=== PATIENT | male | born 1950 | race Caucasian/White ===

== ENCOUNTER 2017-12-06 02:13 | Inpatient (IN) | payer MEDICARE, OTHER ==
[2017-12-06 02:47] LABS: ADD MAN DIFF? NO
[2017-12-06 02:48] LABS: BASO # 0.1 x10^3/uL (0.0-0.2); BASO % 0 % (0-3); EOS # 0.2 x10^3/uL (0.0-0.7); EOS % 1 % (0-3); HEMATOCRIT 40.3 % (39.0-53.0); HEMOGLOBIN 13.1 g/dL (13.0-17.5); LYMPH % 20 % (24-48); MEAN CORPUSCULAR HEMOGLOBIN 26 pg (25-35); MEAN CORPUSCULAR HGB CONC 32 g/dL (31-37); MEAN CORPUSCULAR VOLUME 80 fL (79-100); MONO # 0.8 x10^3/uL (0.0-1.1); MONO % 5 % (0-9); NEUT # 11.1 x10^3uL (1.8-7.7); NEUT % 74 % (31-73); PLATELET COUNT 211 x10^3/uL (140-400); RED BLOOD COUNT 5.05 x10^6/uL (4.30-5.70); RED CELL DISTRIBUTION WIDTH 16.8 % (11.5-14.5); WHITE BLOOD COUNT 15.1 x10^3/uL (4.0-11.0)
[2017-12-06 03:06] LABS: ALBUMIN 3.1 g/dL (3.4-5.0); ALBUMIN/GLOBULIN RATIO 0.8 (1.0-1.7); ALK PHOS 257 U/L (46-116); ALT (SGPT) 138 U/L (16-63); ANION GAP 9 (6-14); AST (SGOT) 52 U/L (15-37); BLOOD UREA NITROGEN 70 mg/dL (8-26); BUN/CREATININE RATIO 29 (6-20); CALCIUM 8.6 mg/dL (8.5-10.1); CARBON DIOXIDE 35 mmol/L (21-32); CHLORIDE 84 mmol/L (98-107); CREATININE 2.4 mg/dL (0.7-1.3); GFR 27.1; SODIUM 128 mmol/L (136-145); TOTAL BILIRUBIN 0.4 mg/dL (0.2-1.0); TOTAL PROTEIN 7.1 g/dL (6.4-8.2)
[2017-12-06 03:07] LABS: TROPONINI 0.024 ng/mL (0.000-0.055)
[2017-12-06 03:13] LABS: CKMB MASS 2.8 ng/mL (0.0-3.6); CREATINE KINASE 59 U/L (39-308)
[2017-12-06 03:13] LABS: NT-PRO BNP 437 pg/mL (0-124)
[2017-12-06 03:15] LABS: GLUCOSE 541 mg/dL (70-99)
[2017-12-06 03:16] LABS: POTASSIUM 2.1 mmol/L (3.5-5.1)
[2017-12-06] MEDS: IPRATRPIUM/ALBUTEROL 0.5/2.5MG 3 ML NEBU. NEB ×2 (03:20→06:00)
[2017-12-06 03:22] LABS: BASE EXCESS COOX 9 mmol/L (-3-3); CARBON MONOXIDE 1.9 % (0.0-1.9); HCO3 COOX 36 mmol/L (21-28); METHEMOGLOBIN 0.4 % (0.0-1.9); OXYHEMOGLOBIN 94.1 %; PCO2 COOX 58 mmHg (35-46); PH COOX 7.41 (7.35-7.45); PO2 COOX 96 mmHg (65-108); SAT O2 COOX 96 % (92-99); TOTAL HEMOGLOBIN 13.5 g/dL
[2017-12-06 03:26] LABS: PARTIAL THROMBOPLASTIN TIME 26 SEC (24-38)
[2017-12-06 03:40] LABS: LACTIC ACID 3.1 mmol/L (0.4-2.0)
[2017-12-06] MEDS: IV NORMAL SALINE 500ML BAG 500 ML IV (04:00)
[2017-12-06] MEDS: IV NORMAL SALINE 1000ML BAG 1,000 ML IV ×2 (04:00→09:17)
[2017-12-06 04:13] LABS: BILIRUBIN,URINE NEGATIVE (NEG); CLARITY,URINE CLEAR; COLOR,URINE YELLOW; GLUCOSE,URINE >=1000 mg/dL (NEG); NITRITE,URINE NEGATIVE (NEG); PH,URINE 6.5; PROTEIN,URINE NEGATIVE (NEG-TRACE); UROBILINOGEN,URINE 0.2 mg/dL (0.2 mg/dL)
[2017-12-06 04:19] LABS: BACTERIA,URINE 0 /HPF (0-FEW); HYALINE CASTS, URINE OCCASIONAL /HPF; RBC,URINE 0 /HPF (0-2); SQUAMOUS EPITHELIAL CELL,UR OCC /LPF; WBC,URINE 0 /HPF (0-4)
[2017-12-06] MEDS: POTASSIUM CHLORIDE 40 MEQ in IV DEXTROSE 5% 1,000 ML IV (04:19)
[2017-12-06] MEDS ORDERED: ONDANSETRON PF 4 MG/2 ML VIAL. IV ×2 (04:30→08:45)
[2017-12-06 05:46] LABS: POC GLUCOSE 353 mg/dL (70-99)
[2017-12-06 07:26] LABS: LACTIC ACID 1.6 mmol/L (0.4-2.0)
[2017-12-06 07:28] LABS: TROPONINI 0.029 ng/mL (0.000-0.055)
[2017-12-06] MEDS ORDERED: DOCUSATE SODIUM 100 MG CAPSULE. PO ×2 (08:30→08:45)
[2017-12-06] MEDS ORDERED: ACETAMINOPHEN 325 MG TABLET. PO ×2 (08:30→08:45)
[2017-12-06] MEDS ORDERED: DEXTROSE 50% 25 GM / 50ML DISP.SYRIN. IV (08:30)
[2017-12-06] MEDS ORDERED: CYCLOBENZAPRINE 10 MG TABLET. PO (08:30)
[2017-12-06] MEDS ORDERED: NITROGLYCERIN SUBLINGUAL 0.4 MG BOTTLE OF 25. SL (08:30)
[2017-12-06] MEDS ORDERED: tiZANidine 4 MG TABLET. PO (08:30)
[2017-12-06] MEDS ORDERED: MORPHINE SULFATE 4 MG/ML DISP.SYRIN. IV (08:45)
[2017-12-06] MEDS ORDERED: hydrALAZINE 20 MG/ML VIAL. IVP (08:45)
[2017-12-06 08:47] LABS: ANION GAP 7 (6-14); BLOOD UREA NITROGEN 66 mg/dL (8-26); CALCIUM 8.6 mg/dL (8.5-10.1); CARBON DIOXIDE 35 mmol/L (21-32); CHLORIDE 88 mmol/L (98-107); CREATININE 2.1 mg/dL (0.7-1.3); GFR 31.7; GLUCOSE 368 mg/dL (70-99); MAGNESIUM 2.5 mg/dL (1.8-2.4); SODIUM 130 mmol/L (136-145)
[2017-12-06 08:50] LABS: POTASSIUM 2.2 mmol/L (3.5-5.1)
[2017-12-06] MEDS ORDERED: RIVAROXABAN 10 MG TABLET. PO (09:00)
[2017-12-06] MEDS ORDERED: NON FORMULARY ITEM (Tiotropium Bromide (Spiriva) 1 CAP) IH (09:00)
[2017-12-06] MEDS ORDERED: NON FORMULARY ITEM (Fluticasone/Salmeterol (Advair 500-50 Diskus) 1 PUFF) IH (09:00)
[2017-12-06] MEDS ORDERED: POLYETHYLENE GLYCOL 3350 17 GM PACKET. PO (09:00)
[2017-12-06] MEDS ORDERED: NON FORMULARY ITEM (Fluticasone/Salmeterol (Advair 500-50 Diskus) 1 INH) IH (09:00)
[2017-12-06] MEDS ORDERED: TORSEMIDE 20 MG TABLET. PO (09:00)
[2017-12-06 10:13] LABS: TROPONINI 0.024 ng/mL (0.000-0.055)
[2017-12-06] MEDS ORDERED: ALBUTEROL SULFATE 2.5 MG/3 ML NEBU. NEB (10:45)
[2017-12-06] MEDS: INSULIN LISPRO 300 UNITS/3 ML INSULN.PEN. SQ ×4 (12:00→18:03)
[2017-12-06] MEDS: ALBUTEROL SULFATE 2.5 MG/3 ML NEBU. NEB ×3 (12:00→23:21)
[2017-12-06 13:49] LABS: POC GLUCOSE 358 mg/dL (70-99)
[2017-12-06 13:53] LABS: THYROID STIM HORMONE (TSH) 3.182 uIU/mL (0.358-3.74)
[2017-12-06] MEDS: amLODIPine BESYLATE 10 MG TABLET PO (14:00)
[2017-12-06] MEDS: SERTRALINE 50 MG TABLET. PO (14:00)
[2017-12-06] MEDS: ALLOPURINOL 100 MG TABLET. PO (14:00)
[2017-12-06] MEDS: MESALAMINE 400 MG CAP.DRTAB. PO (14:00)
[2017-12-06] MEDS: BUDESONIDE 3 MG CAP.ER.24H. PO (14:00)
[2017-12-06] MEDS: VARENICLINE 0.5 MG TABLET. PO (14:00)
[2017-12-06] MEDS: predniSONE 10 MG TABLET PO (14:00)
[2017-12-06] MEDS ORDERED: PERFLUTREN PROTEIN-A MICROSPHR 0.22 MG/ML 3 ML VIAL. IV ×2 (14:00→14:04)
[2017-12-06] MEDS: BACLOFEN 10 MG TABLET. PO ×2 (14:00→21:23)
[2017-12-06] MEDS: EZETIMIBE 10 MG TABLET. PO (14:00)
[2017-12-06] MEDS: metOLazone 2.5 MG TABLET PO (14:00)
[2017-12-06] MEDS: POTASSIUM CHLORIDE 20 MEQ TABLET.ER. PO ×3 (14:00→17:11)
[2017-12-06 14:07] LABS: CHOLESTEROL 114 mg/dL (0-200); HDLC 46 mg/dL (40-60); LDLC 44 mg/dL (0-100); NON-HDL CHOLESTEROL 68 mg/dL (0-129); TRIGLYCERIDES 118 mg/dL (0-150); VLDLC 24 mg/dL (0-40)
[2017-12-06 14:08] LABS: CHOLESTEROL/HDL RATIO 2.5
[2017-12-06 14:32] LABS: ANION GAP 2 (6-14); BLOOD UREA NITROGEN 60 mg/dL (8-26); CALCIUM 8.5 mg/dL (8.5-10.1); CARBON DIOXIDE 39 mmol/L (21-32); CHLORIDE 90 mmol/L (98-107); GFR 33.5; GLUCOSE 383 mg/dL (70-99); SODIUM 131 mmol/L (136-145)
[2017-12-06 14:37] LABS: POTASSIUM 2.4 mmol/L (3.5-5.1)
[2017-12-06] MEDS ORDERED: POTASSIUM CHLORIDE 20MEQ 50 ML IV (14:45)
[2017-12-06] MEDS: CARVEDILOL 3.125 MG TABLET. PO (17:07)
[2017-12-06] MEDS: PANTOPRAZOLE 40 MG TABLET.DR. PO (17:07)
[2017-12-06] MEDS: POTASSIUM CHLORIDE 40 MEQ in IV 1/2 NORMAL SALINE 500 ML IV (17:08)
[2017-12-06 17:53] LABS: POC GLUCOSE 379 mg/dL (70-99)
[2017-12-06 20:53] LABS: POC GLUCOSE 179 mg/dL (70-99)
[2017-12-06] MEDS ORDERED: INSULIN GLARGINE 300 UNITS/3 ML INSULN.PEN. SQ (21:00)
[2017-12-06] MEDS ORDERED: SOTALOL 80 MG TABLET. PO (21:00)
[2017-12-06] MEDS: buPROPion SR 150 MG TABLET.SA PO (21:22)
[2017-12-06] MEDS: oxyCODONE IR 5 MG TABLET PO (21:22)
[2017-12-06] MEDS: traZODone 50 MG TABLET. PO (21:22)
[2017-12-06] MEDS: APIXABAN 5 MG TABLET. PO (21:23)
[2017-12-06] MEDS: AMITRIPTYLINE HCL 10 MG TABLET. PO (21:23)
[2017-12-06] MEDS: ATORVASTATIN CALCIUM 20 MG TABLET PO (21:23)
[2017-12-06] MEDS: INSULIN GLARGINE 300 UNITS/3 ML INSULN.PEN. SQ (21:24)
[2017-12-06] MEDS: traMADol 50 MG TABLET PO (23:16)
[2017-12-07 06:21] LABS: MRSA BY PCR Positive (Negative)
[2017-12-07 06:35] LABS: ADD MAN DIFF? NO
[2017-12-07 06:40] LABS: BASO % 0 % (0-3); EOS # 0.3 x10^3/uL (0.0-0.7); EOS % 2 % (0-3); HEMOGLOBIN 12.1 g/dL (13.0-17.5); LYMPH # 2.6 x10^3/uL (1.0-4.8); LYMPH % 19 % (24-48); MEAN CORPUSCULAR HEMOGLOBIN 26 pg (25-35); MEAN CORPUSCULAR HGB CONC 33 g/dL (31-37); MEAN CORPUSCULAR VOLUME 79 fL (79-100); MONO # 0.5 x10^3/uL (0.0-1.1); MONO % 4 % (0-9); NEUT # 10.1 x10^3uL (1.8-7.7); NEUT % 75 % (31-73); PLATELET COUNT 165 x10^3/uL (140-400); RED BLOOD COUNT 4.66 x10^6/uL (4.30-5.70); RED CELL DISTRIBUTION WIDTH 16.3 % (11.5-14.5); WHITE BLOOD COUNT 13.6 x10^3/uL (4.0-11.0)
[2017-12-07 07:20] LABS: ANION GAP 6 (6-14); BLOOD UREA NITROGEN 50 mg/dL (8-26); CALCIUM 7.7 mg/dL (8.5-10.1); CARBON DIOXIDE 34 mmol/L (21-32); CHLORIDE 94 mmol/L (98-107); GLUCOSE 150 mg/dL (70-99); POTASSIUM 3.1 mmol/L (3.5-5.1); SODIUM 134 mmol/L (136-145)
[2017-12-07 07:42] LABS: CREATININE 1.7 mg/dL (0.7-1.3); GFR 40.4
[2017-12-07] MEDS: BUDESONIDE 3 MG CAP.ER.24H. PO (07:49)
[2017-12-07] MEDS: SERTRALINE 50 MG TABLET. PO (07:50)
[2017-12-07] MEDS: EZETIMIBE 10 MG TABLET. PO (07:50)
[2017-12-07] MEDS: ALLOPURINOL 100 MG TABLET. PO (07:51)
[2017-12-07] MEDS: ALBUTEROL SULFATE 2.5 MG/3 ML NEBU. NEB ×4 (08:07→23:17)
[2017-12-07] MEDS: ANTI-COAG MONITOR BY PHARMACY. MC (08:12)
[2017-12-07 08:45] LABS: POC GLUCOSE 190 mg/dL (70-99)
[2017-12-07] MEDS: PANTOPRAZOLE 40 MG TABLET.DR. PO (08:53)
[2017-12-07] MEDS: metOLazone 2.5 MG TABLET PO (08:53)
[2017-12-07] MEDS: APIXABAN 5 MG TABLET. PO ×2 (08:53→21:10)
[2017-12-07] MEDS: amLODIPine BESYLATE 10 MG TABLET PO (08:54)
[2017-12-07] MEDS: VARENICLINE 0.5 MG TABLET. PO (08:54)
[2017-12-07] MEDS: MESALAMINE 400 MG CAP.DRTAB. PO (08:54)
[2017-12-07] MEDS: POTASSIUM CHLORIDE 20 MEQ TABLET.ER. PO ×2 (08:54→15:42)
[2017-12-07] MEDS: predniSONE 10 MG TABLET PO (08:54)
[2017-12-07] MEDS: BACLOFEN 10 MG TABLET. PO ×3 (08:54→21:10)
[2017-12-07] MEDS: buPROPion SR 150 MG TABLET.SA PO ×2 (08:54→21:10)
[2017-12-07] MEDS: CARVEDILOL 3.125 MG TABLET. PO ×2 (08:55→17:33)
[2017-12-07] MEDS: INSULIN LISPRO 300 UNITS/3 ML INSULN.PEN. SQ ×6 (08:59→17:00)
[2017-12-07] MEDS ORDERED: AMIODARONE HCL 200 MG TABLET. PO (09:00)
[2017-12-07 11:33] LABS: POC GLUCOSE 263 mg/dL (70-99)
[2017-12-07] MEDS ORDERED: ALBUTEROL SULFATE 2.5 MG/3 ML NEBU. NEB (15:00)
[2017-12-07 16:45] LABS: POC GLUCOSE 87 mg/dL (70-99)
[2017-12-07 17:03] LABS: VITAMIN-B12 522 pg/mL (247-911)
[2017-12-07 17:17] LABS: HEMOGLOBIN A1C 8.9 % (4.8-5.6)
[2017-12-07 18:10] LABS: CREATINE KINASE 53 U/L (39-308)
[2017-12-07 19:51] LABS: AMMONIA 38 mcmol/L (11-34)
[2017-12-07 21:01] LABS: POC GLUCOSE 297 mg/dL (70-99)
[2017-12-07] MEDS: ATORVASTATIN CALCIUM 20 MG TABLET PO (21:10)
[2017-12-07] MEDS: traMADol 50 MG TABLET PO (21:10)
[2017-12-07] MEDS: traZODone 50 MG TABLET. PO (21:10)
[2017-12-07] MEDS: AMITRIPTYLINE HCL 10 MG TABLET. PO (21:10)
[2017-12-07] MEDS: CHOLECALCIFEROL (VITAMIN D3) 5,000 UNIT CAPSULE PO (21:10)
[2017-12-07] MEDS: INSULIN GLARGINE 300 UNITS/3 ML INSULN.PEN. SQ (21:13)
[2017-12-07 23:28] LABS: BARBITURATES NEG (NEG); BENZODIAZEPINES NEG (NEG); CANNABINOIDS NEG (NEG); COCAINE NEG (NEG); METHADONE NEG (NEG); OPIATES NEG (NEG); PHENCYCLIDINE NEG (NEG)
[2017-12-07 23:29] LABS: AMPHETAMINE/METHAMPHETAMINE NEG (NEG); ETHANOL, URINE NEG (NEG)
[2017-12-08 05:35] LABS: ADD MAN DIFF? NO
[2017-12-08 05:53] LABS: ANION GAP 5 (6-14); BLOOD UREA NITROGEN 40 mg/dL (8-26); CALCIUM 8.2 mg/dL (8.5-10.1); CARBON DIOXIDE 34 mmol/L (21-32); CHLORIDE 94 mmol/L (98-107); CREATININE 1.5 mg/dL (0.7-1.3); GFR 46.7; GLUCOSE 160 mg/dL (70-99); POTASSIUM 3.5 mmol/L (3.5-5.1); SODIUM 133 mmol/L (136-145)
[2017-12-08 06:08] LABS: BASO % 0 % (0-3); EOS # 0.3 x10^3/uL (0.0-0.7); EOS % 3 % (0-3); HEMATOCRIT 36.2 % (39.0-53.0); HEMOGLOBIN 11.5 g/dL (13.0-17.5); LYMPH # 2.3 x10^3/uL (1.0-4.8); LYMPH % 18 % (24-48); MEAN CORPUSCULAR HEMOGLOBIN 26 pg (25-35); MEAN CORPUSCULAR HGB CONC 32 g/dL (31-37); MEAN CORPUSCULAR VOLUME 80 fL (79-100); MONO # 0.7 x10^3/uL (0.0-1.1); MONO % 5 % (0-9); NEUT # 9.8 x10^3uL (1.8-7.7); NEUT % 74 % (31-73); PLATELET COUNT 151 x10^3/uL (140-400); RED BLOOD COUNT 4.52 x10^6/uL (4.30-5.70); RED CELL DISTRIBUTION WIDTH 16.8 % (11.5-14.5); WHITE BLOOD COUNT 13.2 x10^3/uL (4.0-11.0)
[2017-12-08 07:40] LABS: POC GLUCOSE 181 mg/dL (70-99)
[2017-12-08] MEDS: ALBUTEROL SULFATE 2.5 MG/3 ML NEBU. NEB ×4 (07:54→21:13)
[2017-12-08] MEDS: INSULIN LISPRO 300 UNITS/3 ML INSULN.PEN. SQ ×6 (08:00→17:35)
[2017-12-08] MEDS: CHOLECALCIFEROL (VITAMIN D3) 5,000 UNIT CAPSULE PO (08:48)
[2017-12-08] MEDS: POTASSIUM CHLORIDE 20 MEQ TABLET.ER. PO (08:49)
[2017-12-08] MEDS: VARENICLINE 0.5 MG TABLET. PO (08:49)
[2017-12-08] MEDS: predniSONE 10 MG TABLET PO (08:49)
[2017-12-08] MEDS: BACLOFEN 10 MG TABLET. PO ×3 (08:49→21:15)
[2017-12-08] MEDS: oxyCODONE IR 5 MG TABLET PO (08:49)
[2017-12-08] MEDS: buPROPion SR 150 MG TABLET.SA PO ×2 (08:50→21:15)
[2017-12-08] MEDS: APIXABAN 5 MG TABLET. PO ×2 (08:50→21:15)
[2017-12-08] MEDS: PANTOPRAZOLE 40 MG TABLET.DR. PO (08:50)
[2017-12-08] MEDS: metOLazone 2.5 MG TABLET PO (08:50)
[2017-12-08] MEDS: amLODIPine BESYLATE 10 MG TABLET PO (08:50)
[2017-12-08] MEDS: CALCIUM CARBONATE 500 MG TABLET PO (08:50)
[2017-12-08] MEDS: MESALAMINE 400 MG CAP.DRTAB. PO (08:50)
[2017-12-08] MEDS: AMIODARONE HCL 200 MG TABLET. PO (08:51)
[2017-12-08] MEDS: CARVEDILOL 3.125 MG TABLET. PO ×2 (08:51→17:28)
[2017-12-08] MEDS ORDERED: fentaNYL 50MCG/HR PATCH 1 PATCH PATCH.TD72 TD (09:00)
[2017-12-08 11:22] LABS: POC GLUCOSE 223 mg/dL (70-99)
[2017-12-08 11:46] LABS: CALCIUM PTH 7.8 mg/dL (8.6-10.2); CREATININE PTH 1.66 mg/dL (0.76-1.27); PTH INTACT 226 pg/mL (15-65); eGFR AFRICAN-AMER 49 (>59); eGFR NON AFRICAN-AMER 42 (>59)
[2017-12-08 16:55] LABS: POC GLUCOSE 182 mg/dL (70-99)
[2017-12-08] MEDS: TOPIRAMATE 25 MG TABLET. PO ×2 (17:29→21:15)
[2017-12-08 17:31] LABS: BASE EXCESS ABG 6 mmol/L (-3-3); FIO2 ABG 40; HCO3 ABG 30 mmol/L (21-28); PCO2 ABG 40 mmHg (35-46); PH ABG 7.49 (7.35-7.45); PO2 ABG 78 mmHg (65-108); SAT O2 ABG 96 % (92-99)
[2017-12-08 20:11] LABS: POC GLUCOSE 202 mg/dL (70-99)
[2017-12-08] MEDS: INSULIN GLARGINE 300 UNITS/3 ML INSULN.PEN. SQ (21:15)
[2017-12-08] MEDS: AMITRIPTYLINE HCL 10 MG TABLET. PO (21:15)
[2017-12-08] MEDS: traZODone 50 MG TABLET. PO (21:15)
[2017-12-08] MEDS: traMADol 50 MG TABLET PO (21:15)
[2017-12-08] MEDS: ATORVASTATIN CALCIUM 20 MG TABLET PO (21:15)
[2017-12-08] MEDS: levETIRAcetam 750 MG in IV DEXTROSE 5% 100 ML IV (21:16)
[2017-12-09] MEDS: oxyCODONE IR 5 MG TABLET PO (00:50)
[2017-12-09 03:51] LABS: ADD MAN DIFF? NO
[2017-12-09 03:53] LABS: BASO % 0 % (0-3); EOS # 0.4 x10^3/uL (0.0-0.7); EOS % 3 % (0-3); HEMATOCRIT 35.6 % (39.0-53.0); HEMOGLOBIN 11.6 g/dL (13.0-17.5); LYMPH # 1.7 x10^3/uL (1.0-4.8); LYMPH % 12 % (24-48); MEAN CORPUSCULAR HEMOGLOBIN 26 pg (25-35); MEAN CORPUSCULAR HGB CONC 33 g/dL (31-37); MEAN CORPUSCULAR VOLUME 79 fL (79-100); MONO # 0.7 x10^3/uL (0.0-1.1); MONO % 5 % (0-9); NEUT # 11.2 x10^3uL (1.8-7.7); NEUT % 79 % (31-73); PLATELET COUNT 171 x10^3/uL (140-400); RED BLOOD COUNT 4.49 x10^6/uL (4.30-5.70); RED CELL DISTRIBUTION WIDTH 16.1 % (11.5-14.5); WHITE BLOOD COUNT 14.2 x10^3/uL (4.0-11.0)
[2017-12-09 04:07] LABS: ANION GAP 4 (6-14); BLOOD UREA NITROGEN 40 mg/dL (8-26); CALCIUM 8.4 mg/dL (8.5-10.1); CARBON DIOXIDE 33 mmol/L (21-32); CHLORIDE 94 mmol/L (98-107); CREATININE 1.7 mg/dL (0.7-1.3); GFR 40.4; GLUCOSE 139 mg/dL (70-99); POTASSIUM 3.6 mmol/L (3.5-5.1); SODIUM 131 mmol/L (136-145)
[2017-12-09] MEDS: ALBUTEROL SULFATE 2.5 MG/3 ML NEBU. NEB ×2 (07:47→11:50)
[2017-12-09] MEDS: INSULIN LISPRO 300 UNITS/3 ML INSULN.PEN. SQ ×4 (08:00→12:00)
[2017-12-09 08:10] LABS: POC GLUCOSE 153 mg/dL (70-99)
[2017-12-09] MEDS: ANTI-COAG MONITOR BY PHARMACY. MC (08:13)
[2017-12-09] MEDS: predniSONE 10 MG TABLET PO (11:24)
[2017-12-09] MEDS: buPROPion SR 150 MG TABLET.SA PO (11:24)
[2017-12-09] MEDS: CHOLECALCIFEROL (VITAMIN D3) 5,000 UNIT CAPSULE PO (11:25)
[2017-12-09] MEDS: VARENICLINE 0.5 MG TABLET. PO (11:25)
[2017-12-09] MEDS: PANTOPRAZOLE 40 MG TABLET.DR. PO (11:25)
[2017-12-09] MEDS: BACLOFEN 10 MG TABLET. PO (11:25)
[2017-12-09] MEDS: MESALAMINE 400 MG CAP.DRTAB. PO (11:25)
[2017-12-09] MEDS: AMIODARONE HCL 200 MG TABLET. PO (11:25)
[2017-12-09] MEDS: APIXABAN 5 MG TABLET. PO (11:26)
[2017-12-09] MEDS: CALCIUM CARBONATE 500 MG TABLET PO (11:26)
[2017-12-09] MEDS: POTASSIUM CHLORIDE 20 MEQ TABLET.ER. PO (11:26)
[2017-12-09] MEDS: amLODIPine BESYLATE 10 MG TABLET PO (11:26)
[2017-12-09] MEDS: CARVEDILOL 3.125 MG TABLET. PO (11:26)
[2017-12-09] MEDS: metOLazone 2.5 MG TABLET PO (11:26)
[2017-12-09] MEDS: TOPIRAMATE 25 MG TABLET. PO (11:26)
[2017-12-09 11:36] LABS: POC GLUCOSE 140 mg/dL (70-99)
[2017-12-09] MEDS: PERFLUTREN PROTEIN-A MICROSPHR 0.22 MG/ML 3 ML VIAL. IV (11:54)
[2017-12-09] MEDS ORDERED: LACOSAMIDE 150 MG in IV DEXTROSE 5% 50 ML IV (14:00)
[2017-12-09] MEDS: FUROSEMIDE 20 MG/2 ML VIAL. IVP (14:12)
[2017-12-09] MEDS: levETIRAcetam 750 MG in IV DEXTROSE 5% 100 ML IV (14:16)
[2017-12-09] MEDS: NORMAL SALINE IV (14:56)
[2017-12-09] MEDS: LACOSAMIDE IV (14:56)
[2017-12-09] MEDS ORDERED: CALCIUM CARBONATE 500 MG TABLET PO (21:00)
[2017-12-10] MEDS ORDERED: FUROSEMIDE 40 MG TABLET. PO (09:00)
[2017-12-10 13:18] LABS: COPPER LEVEL 129 ug/dL (72-166)
== END 2017-12-09 16:00 | DRG 682 ==
LOC: ER 02:13 → ED HOLD 05:48 → 2 NORTH 13:26
PROC: 5A09357 Assistance with Respiratory Ventilation, Less than 24 Consecutive Hours, Continuous Positive Airway Pressure (ICD-10-PCS; principal; 2017-12-06)
PROC: 5A09357 Assistance with Respiratory Ventilation, Less than 24 Consecutive Hours, Continuous Positive Airway Pressure (ICD-10-PCS; 2017-12-07)
PROC: 5A09357 Assistance with Respiratory Ventilation, Less than 24 Consecutive Hours, Continuous Positive Airway Pressure (ICD-10-PCS; 2017-12-08)
PROC: 4A00X4Z Measurement of Central Nervous Electrical Activity, External Approach (ICD-10-PCS; 2017-12-08)
PROC: 5A09357 Assistance with Respiratory Ventilation, Less than 24 Consecutive Hours, Continuous Positive Airway Pressure (ICD-10-PCS; 2017-12-09)
DX: N17.0 Acute kidney failure with tubular necrosis (principal); G93.41 Metabolic encephalopathy; J96.21 Acute and chronic respiratory failure with hypoxia; I50.43 Acute on chronic combined systolic (congestive) and diastolic (congestive) heart failure; G93.1 Anoxic brain damage, not elsewhere classified; E11.22 Type 2 diabetes mellitus with diabetic chronic kidney disease; E83.51 Hypocalcemia; M48.02 Spinal stenosis, cervical region; I13.0 Hypertensive heart and chronic kidney disease with heart failure and stage 1 through stage 4 chronic kidney disease, or unspecified chronic kidney disease; R65.10 Systemic inflammatory response syndrome (SIRS) of non-infectious origin without acute organ dysfunction; E66.2 Morbid (severe) obesity with alveolar hypoventilation; E87.1 Hypo-osmolality and hyponatremia; E87.2 Acidosis; J44.1 Chronic obstructive pulmonary disease with (acute) exacerbation; W18.39XA Other fall on same level, initial encounter; F41.9 Anxiety disorder, unspecified; M19.90 Unspecified osteoarthritis, unspecified site; E11.40 Type 2 diabetes mellitus with diabetic neuropathy, unspecified; E55.9 Vitamin D deficiency, unspecified; E11.65 Type 2 diabetes mellitus with hyperglycemia; E78.5 Hyperlipidemia, unspecified; E87.6 Hypokalemia; F17.210 Nicotine dependence, cigarettes, uncomplicated; F32.9 Major depressive disorder, single episode, unspecified; G25.3 Myoclonus; G47.33 Obstructive sleep apnea (adult) (pediatric); G89.4 Chronic pain syndrome; I25.10 Atherosclerotic heart disease of native coronary artery without angina pectoris; I45.10 Unspecified right bundle-branch block; I48.0 Paroxysmal atrial fibrillation; M47.9 Spondylosis, unspecified; R29.6 Repeated falls; N18.9 Chronic kidney disease, unspecified; Z79.01 Long term (current) use of anticoagulants; Z79.4 Long term (current) use of insulin; Z79.899 Other long term (current) drug therapy; Z87.01 Personal history of pneumonia (recurrent); Z87.440 Personal history of urinary (tract) infections; Z83.3 Family history of diabetes mellitus; Z86.14 Personal history of Methicillin resistant Staphylococcus aureus infection; Z86.718 Personal history of other venous thrombosis and embolism; Z86.73 Personal history of transient ischemic attack (TIA), and cerebral infarction without residual deficits; Z86.79 Personal history of other diseases of the circulatory system; Z95.0 Presence of cardiac pacemaker; Z95.1 Presence of aortocoronary bypass graft; Z95.5 Presence of coronary angioplasty implant and graft; Z96.659 Presence of unspecified artificial knee joint; Z99.81 Dependence on supplemental oxygen; Y93.89 Activity, other specified; Y92.89 Other specified places as the place of occurrence of the external cause; Y99.8 Other external cause status; I25.2 Old myocardial infarction; Z90.49 Acquired absence of other specified parts of digestive tract; Z90.89 Acquired absence of other organs; Z88.0 Allergy status to penicillin; Z88.6 Allergy status to analgesic agent; Z91.040 Latex allergy status; Z91.048 Other nonmedicinal substance allergy status
CPT/HCPCS: 36415; 36600; 51702; 70450; 71045; 72125; 73030; 80048; 80053; 80061; 80307; 81001; 82140; 82306; 82310; 82525; 82550; 82553; 82607; 82805; 82962; 83036; 83605; 83735; 83880; 83970; 84443; 84484; 85025; 85610; 85730; 87040; 87641; 93005; 94640; 94660; 95816; 97163-GP; 97166-GO; 97530-GP; 99291-25; 99406; C8929; C9254; J0690; J1815; J1953; J7030; J7512; J7613; J7620; Q9956

== ENCOUNTER 2018-03-05 22:25 | Emergency (ER) | payer MEDICARE, OTHER ==
[2018-03-05] MEDS: IV NORMAL SALINE 1000ML BAG 1,000 ML IV
[2018-03-05 23:42] LABS: ADD MAN DIFF? NO
[2018-03-05 23:44] LABS: BASO # 0.1 x10^3/uL (0.0-0.2); BASO % 1 % (0-3); EOS # 0.7 x10^3/uL (0.0-0.7); EOS % 9 % (0-3); HEMATOCRIT 33.8 % (39.0-53.0); LYMPH % 26 % (24-48); MEAN CORPUSCULAR HEMOGLOBIN 27 pg (25-35); MEAN CORPUSCULAR HGB CONC 33 g/dL (31-37); MEAN CORPUSCULAR VOLUME 83 fL (79-100); MONO # 0.6 x10^3/uL (0.0-1.1); MONO % 8 % (0-9); NEUT # 4.3 x10^3uL (1.8-7.7); NEUT % 56 % (31-73); PLATELET COUNT 171 x10^3/uL (140-400); RED BLOOD COUNT 4.08 x10^6/uL (4.30-5.70); RED CELL DISTRIBUTION WIDTH 20.2 % (11.5-14.5); WHITE BLOOD COUNT 7.7 x10^3/uL (4.0-11.0)
[2018-03-05 23:53] LABS: ANION GAP 7 (6-14); BLOOD UREA NITROGEN 21 mg/dL (8-26); BUN/CREATININE RATIO 11 (6-20); CALCIUM 8.3 mg/dL (8.5-10.1); CARBON DIOXIDE 28 mmol/L (21-32); CHLORIDE 103 mmol/L (98-107); CREATININE 1.9 mg/dL (0.7-1.3); GFR 35.5; GLUCOSE 123 mg/dL (70-99); SODIUM 138 mmol/L (136-145)
[2018-03-06] LABS: ALBUMIN 2.7 g/dL (3.4-5.0); ALBUMIN/GLOBULIN RATIO 0.7 (1.0-1.7); ALK PHOS 587 U/L (46-116); ALT (SGPT) 131 U/L (16-63); AST (SGOT) 81 U/L (15-37); MAGNESIUM 1.9 mg/dL (1.8-2.4); TOTAL BILIRUBIN 0.3 mg/dL (0.2-1.0); TOTAL PROTEIN 6.5 g/dL (6.4-8.2)
[2018-03-06 00:04] LABS: TROPONINI < 0.017 ng/mL (0.000-0.055)
[2018-03-06 00:09] LABS: CKMB MASS 0.9 ng/mL (0.0-3.6); CREATINE KINASE 50 U/L (39-308)
[2018-03-06 02:07] LABS: BILIRUBIN,URINE SMALL (NEG); CLARITY,URINE CLEAR; COLOR,URINE RED; GLUCOSE,URINE NEGATIVE (NEG); PROTEIN,URINE NEGATIVE (NEG-TRACE)
[2018-03-06 02:14] LABS: BACTERIA,URINE 0 /HPF (0-FEW); RBC,URINE 0 /HPF (0-2)
[2018-03-06 02:15] LABS: HYALINE CASTS, URINE MODERATE /HPF; NITRITE,URINE NEGATIVE (NEG); SQUAMOUS EPITHELIAL CELL,UR OCC /LPF
[2018-03-06 04:21] LABS: ANISOCYTOSIS MOD; PLT ESTIMATE ADEQUATE (ADEQUATE); POLYCHROMASIA SLIGHT
== END 2018-03-06 02:56 | disposition home or self-care (01) ==
LOC: ER 03-06 02:56
DX: R42 Dizziness and giddiness (principal); E11.22 Type 2 diabetes mellitus with diabetic chronic kidney disease; E11.40 Type 2 diabetes mellitus with diabetic neuropathy, unspecified; Z86.73 Personal history of transient ischemic attack (TIA), and cerebral infarction without residual deficits; G89.29 Other chronic pain; Z95.0 Presence of cardiac pacemaker; Z88.0 Allergy status to penicillin; Z88.6 Allergy status to analgesic agent; Z88.8 Allergy status to other drugs, medicaments and biological substances; Z91.041 Radiographic dye allergy status; Z91.040 Latex allergy status
CPT/HCPCS: 36415; 51701; 80053; 81001; 82553; 83735; 84484; 85025; 87086; 93005; 96360; 99285-25; J7030